=== PATIENT | female | born 1990 | race Caucasian/White ===

== ENCOUNTER 2024-02-29 13:53 | Emergency (ER) | payer BC ==
[~2024-02-29] VITALS: Ht 165.1 cm; Wt 68.0 kg
[2024-02-29 13:59] VITALS: BP 150/92; PULSE 89; RESP 18; TEMP 36.94740; O2SAT 99
== END 2024-02-29 14:38 | disposition left against medical advice (07) ==
LOC: ER 13:53
DX: N39.0 Urinary tract infection, site not specified (principal); Z53.21 Procedure and treatment not carried out due to patient leaving prior to being seen by health care provider